=== PATIENT | female | born 1970 | race Two or more races ===

== ENCOUNTER 2020-01-27 09:44 | Outpatient (CLI) | payer OTHER | END 2020-01-27 09:52 | disposition home or self-care (01) | LOC: RX STUDY 09:44 | PROVIDERS: ATTEND Internal Medicine Gastroenterology | DX: R13.12 Dysphagia, oropharyngeal phase (principal) ==

== ENCOUNTER 2021-10-26 22:38 | Emergency (ER) | payer OTHER ==
[~2021-10-26] VITALS: Ht 149.9 cm; Wt 70.3 kg
[2021-10-26] MEDS ORDERED: SYNTHROID (23:00)
[2021-10-27] MEDS ORDERED: ACETAMINOPHEN650 M2 PO (02:52)
[2021-10-27] MEDS ORDERED: AZITHROMYCIN500 MG PO (02:52)
[2021-10-27] MEDS ORDERED: MUCINEX DM ER1 EAC1 PO (02:52)
[2021-10-27] MEDS ORDERED: MEDROLPACK PO (02:52)
[2021-10-27] MEDS ORDERED: XOPENEX0.63 MG/3 IH (02:52)
== END 2021-10-27 03:20 | disposition home or self-care (01) ==
LOC: ER 22:38
DX: U07.1 COVID-19 (principal); B34.8 Other viral infections of unspecified site; J06.9 Acute upper respiratory infection, unspecified; J20.9 Acute bronchitis, unspecified